=== PATIENT | female | born 1945 | race African-American/Black ===

== ENCOUNTER 2017-05-03 15:13 | Emergency (ER) | payer MEDICARE, OTHER ==
[~2017-05-03] VITALS: Ht 167.6 cm; Wt 63.0 kg
[2017-05-03 15:35] VITALS: Ht 167.6 cm; Wt 63.0 kg
[2017-05-03] MEDS ORDERED: ACETAMINOPHEN 500 MG TAB PO STA (17:25)
--- NOTE | 2017-05-03 18:43 | RADRPT ---
PROCEDURE: XR right shoulder. CLINICAL INDICATION: Trauma to the right shoulder. TECHNIQUE: 3 views of the right shoulder were performed. COMPARISON: None. FINDINGS: Comminuted fracture of the surgical neck of the right humerus with 1 shaft width medial displacement of the distal fragment. The soft tissues are unremarkable. IMPRESSION: Comminuted fracture of the surgical neck of the right humerus. RPTAT: [facility] Physician Lexy Date Time Electronically viewed and signed by Physician Lexy on 05/03/2017 18:43 RS/
[2017-05-03] MEDS ORDERED: TRAM50TA2 PO (19:13)
[2017-05-03] MEDS ORDERED: IBUP400T22 PO (19:13)
--- NOTE | 2017-05-03 19:26 | ERD ---
ER Documentation Chief Complaint Date/Time DATE: 05/03/17 TIME: 19:23 Chief Complaint right shoulder pain from a fall today; no ko HPI This 71-year-old female presents with right shoulder pain after mechanical fall today tripping. She denies any head injury, neck pain, weakness, complaints other than her right shoulder pain. She has difficulty raising her arm due to pain. She denies any weakness distally of the injury ROS All systems reviewed and are negative except as per history of present illness. Medications Home Meds Active Scripts Tramadol HCl (Tramadol HCl) 50 Mg Tablet, 50 MG PO Q4 Y for PAIN, #15 TAB Prov:NETO SNOW MD 05/03/17 Ibuprofen* (Motrin*) 400 Mg Tab, 400 MG PO Q6, #20 TAB Prov:NETO SNOW MD 05/03/17 PMhx/Soc History of Surgery: Yes (R breast lumpectomy [place]) Anesthesia Reaction: No Hx Neurological Disorder: No Hx Respiratory Disorders: Yes (SOB d/t "thick" heart) Hx Cardiac Disorders: Yes (Hx of 2010) Hx Psychiatric Problems: No Hx Miscellaneous Medical Probl: No Hx Alcohol Use: Yes Hx Substance Use: No Hx Tobacco Use: No Smoking Status: Never smoker Physical Exam Vitals Vital Signs Date Time Temp Pulse Resp B/P Pulse Ox O2 Delivery O2 Flow Rate FiO2 05/03/17 15:35 98.4 105 18 133/60 96 Physical Exam Const: []Alert, pleasant, not ill-appearing. Head: Atraumatic Eyes: Normal Conjunctiva ENT: Normal External Ears, Nose and Mouth. Neck: Full range of motion..~ No meningismus. Resp: Clear to auscultation bilaterally Cardio: Regular rate and rhythm, no murmurs Abd: Soft, non tender, non distended. Normal bowel sounds Skin: No petechiae or rashes Back: No midline or flank tenderness Ext: No cyanosis, or edemaRedness and tenderness primarily proximal humerus. There is no elbow or wrist tenderness. Patient displays no deficits in the radial, median or ulnar nerve and pulses are 2+ distally. Neur: Awake and alert Psych: Normal Mood and Affect Results 24 hrs Current Medications Medications (Trade) Dose Ordered Sig/Deloris Route PRN Reason Start Time Stop Time Status Last Admin Dose Admin Acetaminophen (Tylenol Tab) 500 mg ONCE STAT PO 05/03/17 17:25 05/03/17 17:27 DC 05/03/17 19:05 Procedures/MDM X-ray right shoulder 3V Interpreted by me: Bones: Is a comminuted fracture right proximal humerus at the surgical neck. There is displacement by one bone width medially. Joints: No dislocation Foreign body: None. Impression-displaced proximal humerus fracture at the surgical neck. Call space orthopedist on-call, Dr. garsia. Case is discussed. He advised patient could be placed in a shoulder immobilizer and followed up as an outpatient. Patient shows no evidence of neurovascular compromise or ischemia. Patient was discharged home with a prescription tramadol ibuprofen and orthopedic follow-up this week. She is otherwise return to the ER for new or worsening symptoms. There is no signs or symptoms of any additional injury to her fall today such as head injury or neck injury. Departure Diagnosis: Primary Impression: Humerus surgical neck fracture Encounter type: initial encounter Fracture type: closed Fracture morphology : unspecified fracture morphology Fracture alignment: displaced Laterality: right Qualified Code: S42.211A - Closed displaced fracture of surgical neck of right humerus, unspecified fracture morphology, initial encounter Condition: Stable Patient Instructions: Fracture, Upper Extremity Referrals: PRERNA DE SANTIAGO MD, SHAHIN MD Additional Instructions: See orthopedist this week for further evaluation and treatment. Recheck otherwise for new or worsening symptoms. NETO SNOW MD May 03, 2017 19:26
[2017-05-03 20:23] VITALS: BP 180/80; PULSE 84; RESP 18; TEMP 97.9
== END 2017-05-03 20:27 | disposition home or self-care (01) ==
LOC: FTE 15:13
DX: S42.211A Unspecified displaced fracture of surgical neck of right humerus, initial encounter for closed fracture (principal); W01.0XXA Fall on same level from slipping, tripping and stumbling without subsequent striking against object, initial encounter; Y92.9 Unspecified place or not applicable